=== PATIENT | male | born 1950 | race Caucasian/White ===

== ENCOUNTER 2017-01-21 10:47 | Observation (INO) | payer MEDICARE, OTHER ==
[~2017-01-21] VITALS: Ht 172.7 cm; Wt 81.5 kg
[2017-01-21 10:51] VITALS: BP 147/91; PULSE 64; RESP 18; TEMP 98.2; O2SAT 100
[2017-01-21 11:09] LABS: BLOOD, URINE SMALL (NEG); GLUCOSE,URINE NEG (NEG); KETONE, URINE NEG (NEG); NITRITE,URINE NEG (NEG); PH, URINE 6.5 (5.0-8.5)
[2017-01-21 11:11] LABS: METHOD OF COLLECTION CLEAN CATCH; URINE COLOR YELLOW (YELLW/STRAW)
--- NOTE | 2017-01-21 11:11 | PD ---
HPI Chief Complaint: Abdominal Pain Time Seen by Provider: 10:59 Travel History International Travel<30 days: No Contact w/Intl Traveler<30days: No Traveled to known affect area: No History of Present Illness HPI Patient 66-year-old male presents emergency Department with right lower quadrant abdominal pain for the past 2 hours. He is coming by his who states "he is not a complainer". Patient states the pain, radiates all throughout his right lower quadrant. Some mild nausea associated with symptoms but no vomiting. Patient states is moderate and sharp in nature. His only surgical history is a left inguinal hernia repair. He denies any diarrhea states was feeling well yesterday when he went to sleep. No fevers. Denies any dysuria. PFSH Past Medical History Hx Anticoagulant Therapy: Yes (asa 81) Cardiovascular Problems: Yes (htn cholesterol) Social History Tobacco Use: No Allergies-Medications (Allergen,Severity, Reaction): Coded Allergies: No Known Allergies (Unverified , 01/21/17) Reported Meds & Prescriptions Reported Meds & Active Scripts Active Reported [Occuvite] Aspirin EC (Aspirin) 81 Mg Tabdr 81 Mg PO DAILY Lisinopril 10 Mg Tab 10 Mg PO DAILY Atorvastatin (Atorvastatin Calcium) 40 Mg Tab 40 Mg PO HS Metoprolol Tartrate 50 Mg Tab 50 Mg PO BID Review of Systems Except as stated in HPI: all other systems reviewed are Neg Physical Exam Narrative GENERAL: Well-developed well-nourished, appears uncomfortable but nontoxic. SKIN: Focused skin assessment warm/dry. HEAD: Atraumatic. Normocephalic. EYES: Pupils equal and round. No scleral icterus. No injection or drainage. ENT: No nasal bleeding or discharge. Mucous membranes pink and moist. NECK: Trachea midline. No JVD. CARDIOVASCULAR: Regular rate and rhythm. No murmur appreciated. RESPIRATORY: No accessory muscle use. Clear to auscultation. Breath sounds equal bilaterally. GASTROINTESTINAL: Abdomen soft, moderately tender in the right lower quadrant, nondistended. Hepatic and splenic margins not palpable. No rebound no percussive tenderness. Genitourinary: No hernia, testes grossly normal. MUSCULOSKELETAL: No obvious deformities. No clubbing. No cyanosis. No edema. NEUROLOGICAL: Awake and alert. No obvious cranial nerve deficits. Motor grossly within normal limits. Normal speech. PSYCHIATRIC: Appropriate mood and affect; insight and judgment normal. Data Data Last Documented VS Vital Signs Date Time Temp Pulse Resp B/P Pulse Ox O2 Delivery O2 Flow Rate FiO2 01/21/17 14:14 75 16 185/86 96 Room Air 01/21/17 10:51 98.2 Orders Urinalysis - C+S If Indicated (01/21/17 10:49) Complete Blood Count With Diff (01/21/17 11:03) Comprehensive Metabolic Panel (01/21/17 11:03) Lipase (01/21/17 11:03) Ct Abd/Pel W Iv Contrast(Rout) (01/21/17 11:03) Iv Access Insert/Monitor (01/21/17 11:03) Ecg Monitoring (01/21/17 11:03) Oximetry (01/21/17 11:03) Sodium Chloride 0.9% Flush (Ns Flush) (01/21/17 11:15) Acetaminophen (Tylenol) (01/21/17 11:15) Morphine Inj (Morphine Inj) (01/21/17 11:30) Ondansetron Inj (Zofran Inj) (01/21/17 11:30) Iohexol 350 Inj (Omnipaque 350 Inj) (01/21/17 12:00) Abdomen, Kub Only (01/22/17 06:00) Tamsulosin (Flomax) (01/21/17 15:00) Ketorolac Inj (Toradol Inj) (01/21/17 18:00) Strain Urine PRN (01/21/17 14:48) Admit Order (Ed Use Only) (01/21/17 ) Consult Urology (01/21/17 ) Atorvastatin (Lipitor) (01/21/17 21:00) Lisinopril (Prinivil) (01/22/17 09:00) Metoprolol Tartrate (Lopressor) (01/21/17 21:00) Labs Laboratory Tests Test 01/21/17 01/21/17 11:00 11:08 Urine Collection Type CLEAN CATCH Urine Color YELLOW Urine Turbidity CLEAR Urine pH 6.5 Urine Specific [place] 1.022 Urine Protein 30 mg/dL Urine Glucose (UA) NEG mg/dL Urine Ketones NEG mg/dL Urine Occult Blood SMALL Urine Nitrite NEG Urine Bilirubin NEG Urine Leukocyte Esterase NEG Urine RBC 0-3 /hpf Urine WBC 3-5 /hpf Urine Amorphous Sediment FEW Microscopic Urinalysis Comment CULT NOT INDICATED White Blood Count 12.8 TH/MM3 Red Blood Count 4.95 MIL/MM3 Hemoglobin 15.3 GM/DL Hematocrit 45.8 % Mean Corpuscular Volume 92.5 FL Mean Corpuscular Hemoglobin 30.9 PG Mean Corpuscular Hemoglobin 33.4 % Concent Red Cell Distribution Width 12.5 % Platelet Count 220 TH/MM3 Mean Platelet Volume 9.0 FL Neutrophils (%) (Auto) 78.0 % Lymphocytes (%) (Auto) 14.6 % Monocytes (%) (Auto) 6.5 % Eosinophils (%) (Auto) 0.6 % Basophils (%) (Auto) 0.3 % Neutrophils # (Auto) 9.9 TH/MM3 Lymphocytes # (Auto) 1.9 TH/MM3 Monocytes # (Auto) 0.8 TH/MM3 Eosinophils # (Auto) 0.1 TH/MM3 Basophils # (Auto) 0.0 TH/MM3 CBC Comment DIFF FINAL Differential Comment Sodium Level 144 MEQ/L Potassium Level 4.0 MEQ/L Chloride Level 106 MEQ/L Carbon Dioxide Level 29.7 MEQ/L Anion Gap 8 MEQ/L Blood Urea Nitrogen 19 MG/DL Creatinine 1.30 MG/DL Estimat Glomerular Filtration 55 ML/MIN Rate Random Glucose 138 MG/DL Calcium Level 9.2 MG/DL Total Bilirubin 0.8 MG/DL Aspartate Amino Transf 24 U/L (AST/SGOT) Alanine Aminotransferase 39 U/L (ALT/SGPT) Alkaline Phosphatase 89 U/L Total Protein 7.6 GM/DL Albumin 3.9 GM/DL Lipase 187 U/L [facility] Medical Decision Making Medical Screen Exam Complete: Yes Emergency Medical Condition: Yes Differential Diagnosis Kidney stone, obstruction, appendicitis, gastritis, gastric enteritis, dehydration Narrative Course Patient 66-year-old male roomed in the emergency department, he appears comfortable but I think he is being fairly stoic currently. Initially he requested only Tylenol for pain. Was approached by nursing who states he looks even more uncomfortable. Morphine was ordered and this seems to be holding his pain had a comfortable level. CT examination was pursued and shows: Last 24 hours Impressions Abdomen/Pelvis CT 01/21/17 1103 Signed Impressions: Service Date/Time: January 11:48 - CONCLUSION: 1. 8 mm distal right ureteral stone with obstruction. There is perinephric fluid surrounding the right kidney suggesting calyceal rupture. 2. Tiny nonobstructing left renal calculi. 3. Enlarged prostate gland. Tono Ramirez Jr., MD Discuss results with the patient and recommended he have a urology consult preferably as an inpatient. His creatinine is 1.3, urine is noninfected. Patient was discussed with Dr. Carpenter who states that many times these particular types of stones or managed without intervention. He states he would happily see in consultation. The patient was discussed with Dr. Mirza for observation status and he is agreeable. Diagnosis Primary Impression: Hydronephrosis Qualified Code: N13.2 - Hydronephrosis with urinary obstruction due to ureteral calculus Additional Impression: Kidney stone Admitting Information Admitting Physician Requests: Observation Condition: Stable Rufus Hickman MD January 21, 2017 11:10
[2017-01-21 11:15] LABS: COMMENT (UR) CULT NOT INDICATED; COMMENT2 (UR) MUCOUS PRESENT; CULTURE IF INDICATED CULT NOT INDICATED; RBC, URINE 0-3 /hpf (0-3)
[2017-01-21] MEDS ORDERED: SODIUM CHLORIDE 0.9% FLUSH 10 ML FLUSH IV FLUSH PRN ×2 (11:15→15:15)
[2017-01-21] MEDS ORDERED: ACETAMINOPHEN 325 MG TAB PO ONE (11:15)
[2017-01-21] MEDS ORDERED: METO50TA PO (11:16)
[2017-01-21] MEDS ORDERED: OCCUVITE (11:16)
[2017-01-21] MEDS ORDERED: LISI10TA3 PO (11:16)
[2017-01-21] MEDS ORDERED: ATOR40TA16 PO (11:16)
[2017-01-21] MEDS ORDERED: ASPI81TA11 PO (11:16)
[2017-01-21 11:18] VITALS: O2SAT 99
[2017-01-21 11:22] LABS: AUTOMATED NEUTROPHIL # 9.9 TH/MM3 (1.8-7.7); BASOPHIL % 0.3 % (0.0-2.0); EOSINOPHIL # 0.1 TH/MM3 (0-0.4); EOSINOPHIL % 0.6 % (0.0-4.0); HEMATOCRIT 45.8 % (39.0-51.0); LYMPH % 14.6 % (9.0-44.0); LYMPHOCYTE # 1.9 TH/MM3 (1.0-4.8); MEAN CELL VOLUME 92.5 FL (80.0-100.0); MEAN CORPUSCULAR HEMOGLOBIN 30.9 PG (27.0-34.0); MEAN CORPUSCULAR HGB CONC 33.4 % (32.0-36.0); MONO % 6.5 % (0.0-8.0); PLATELET COUNT 220 TH/MM3 (150-450); RED BLOOD COUNT 4.95 MIL/MM3 (4.50-5.90); RED CELL DISTRIBUTION WIDTH 12.5 % (11.6-17.2); WHITE BLOOD COUNT 12.8 TH/MM3 (4.0-11.0)
[2017-01-21 11:23] LABS: HEMO FLAGS DIFF FINAL
[2017-01-21 11:28] LABS: CHLORIDE 106 MEQ/L (98-107); SODIUM (NA) 144 MEQ/L (136-145)
[2017-01-21] MEDS ORDERED: ONDANSETRON HCL 4 MG/2 ML VIAL IV PUSH ONE (11:30)
[2017-01-21] MEDS ORDERED: MORPHINE SULFATE 8 MG/ML INJ IV PUSH ONE (11:30)
[2017-01-21 11:32] LABS: ANION GAP 8 MEQ/L (5-15); BICARBONATE 29.7 MEQ/L (21.0-32.0)
[2017-01-21 11:33] LABS: BLOOD UREA NITROGEN 19 MG/DL (7-18)
[2017-01-21 11:35] LABS: ALT (GPT) 39 U/L (12-78); AST (GOT) 24 U/L (15-37); GLOMERULAR FILTRATION RATE 55 ML/MIN (>89)
[2017-01-21 11:37] LABS: TOTAL BILIRUBIN ADULT 0.8 MG/DL (0.2-1.0)
[2017-01-21 11:38] LABS: ALKALINE PHOSPHATASE 89 U/L (45-117)
[2017-01-21] MEDS ORDERED: IOHEXOL 350 MG/ML 10 ML VIAL (for RAD DIAG) IV ONE (12:00)
--- NOTE | 2017-01-21 13:34 | RADHPO ---
EXAM DATE/TIME: 01/21/2017 11:48 [facility] COMPARISON: No previous studies available for comparison. INDICATIONS : Right lower quadrant pain. IV CONTRAST: 85 cc Omnipaque 350 (iohexol) IV ORAL CONTRAST: No oral contrast ingested. RADIATION DOSE: 12.76 CTDIvol (mGy) MEDICAL HISTORY : Hypertension. SURGICAL HISTORY : None. ENCOUNTER: Initial ACUITY: 1 day PAIN SCALE: 7/10 LOCATION: Right lower quadrant TECHNIQUE: Volumetric scanning of the abdomen and pelvis was performed. Using automated exposure control and ad justment of the mA and/or kV according to patient size, radiation dose was kept as low as reasonably achievable to obtain optimal diagnostic quality images. FINDINGS: LOWER LUNGS: The visualized lower lungs are clear. LIVER: Homogeneous density without lesion. There is no dilation of the biliary tree. No calcified gallston es. SPLEEN: Normal size without lesion. PANCREAS: Within normal limits. KIDNEYS: An 8 mm distal ureteral stone is observed. This is essentially at the crossing of the iliac vessels. There is significant hydronephrosis and hydroureter. Perinephric fluid is seen surrounding the right kidney without an abscess. No other renal stones seen on the right. 2 tiny stones are seen on the lef t measuring 1-2 mm. These are nonobstructing. ADRENAL GLANDS: Within normal limits. VASCULAR: There is no aortic aneurysm. BOWEL/MESENTERY: The stomach, small bowel, and colon demonstrate no acute abnormality. There is no free intraperitone al air or fluid. ABDOMINAL WALL: Within normal limits. RETROPERITONEUM: There is no lymphadenopathy. BLADDER: No wall thickening or mass. REPRODUCTIVE: The prostate gland is enlarged. This measures 6.2 cm in mediolateral dimension. INGUINAL: There is no lymphadenopathy or hernia. MUSCULOSKELETAL: Within normal limits for patient age. CONCLUSION: 1. 8 mm distal right ureteral stone with obstruction. There is perinephric fluid surrounding the righ t kidney suggesting calyceal rupture. 2. Tiny nonobstructing left renal calculi. 3. Enlarged prostate gland. Tono Ramirez Jr., MD on January 21, 2017 at 13:28 Board Certified Radiologist. This report was verified electronically.
[2017-01-21 13:42] VITALS: BP 192/90; PULSE 74; RESP 16; O2SAT 96
[2017-01-21 14:14] VITALS: BP 185/86; PULSE 75; RESP 16; O2SAT 96
[2017-01-21] MEDS ORDERED: NALOXONE HCL 0.4 MG/ML AMP IV PRN (15:15)
[2017-01-21] MEDS ORDERED: ONDANSETRON HCL 4 MG/2 ML VIAL IVP PRN (15:15)
[2017-01-21] MEDS ORDERED: ACETAMINOPHEN 325 MG TAB PO PRN ×2 (15:15)
[2017-01-21] MEDS ORDERED: ZOLPIDEM TARTRATE 5 MG TAB PO PRN (15:15)
[2017-01-21] MEDS ORDERED: MORPHINE SULFATE 4 MG/ML INJ IV PRN (15:15)
[2017-01-21] MEDS ORDERED: SENNOSIDES 8.6 MG TAB PO PRN (15:15)
[2017-01-21] MEDS: TAMSULOSIN HCL 0.4 MG CAP PO SCH (15:18)
[2017-01-21] MEDS ORDERED: ENALAPRILAT 1.25 MG/ML VIAL IV PUSH PRN (15:30)
[2017-01-21] MEDS ORDERED: LEVOFLOXACIN 750 MG PREMIX INJ 150 ML IV SCH (15:30)
--- NOTE | 2017-01-21 15:30 | HHI.HP ---
[facility]Staff Ad[facility] Diagnosis Obstructing Uropathy Diagnoses: Chief Complaint: Abdominal pain Travel History International Travel<30 Days: No Contact w/Intl Traveler <30 Da: No Traveled to Known Affected Are: No History of Present Illness The patient is a 66-year-old male with past medical history of hypertension and hyperlipidemia who is presenting to the hospital with abdominal pain. He said he was feeling fine until this morning when he woke up with a pressure in his lower abdomen. He described the sensation is similar to feeling constipated. He says over the next 2 hours the pain turned sharp in nature and was located in the right lower quadrant. The pain did not seem to radiate anywhere. He rated the pain an 8 out of 10 in severity. He said it was constant in nature. He denied any nausea. He denies any difficulties with urinating or any blood in his urine. He says he has been having regular bowel movements. He currently rates his pain as a 4 out of 10 in severity. He denies any recent fevers or chills. The patient reports he had just arrived in [place] for vacation. Review of Systems Except as stated in HPI: all other systems reviewed are Neg Past Family Social History Past Medical History Hypertension Hyperlipidemia Past Surgical History Left inguinal hernia repair Bilateral foot surgery Allergies: Coded Allergies: No Known Allergies (Unverified , 01/21/17) Active Ordered Medications Current Medications Medications (Trade) Dose Ordered Sig/[place] Route Start Time Stop Time Status Last Admin (NS Flush) 2 ml UNSCH PRN IV FLUSH 01/21/17 11:15 (Flomax) 0.4 mg DAILY PO 01/21/17 15:00 01/21/17 15:18 (Toradol Inj) 30 mg Q6HR IV PUSH 01/21/17 18:00 01/26/17 17:59 (Lipitor) 40 mg HS PO 01/21/17 21:00 (Prinivil) 10 mg DAILY PO 01/22/17 09:00 Metoprolol Tartrate 50 mg 50 mg BID PO 01/21/17 21:00 (1/2 NS 1000 ml Inj) 1,000 ml @ 75 mls/hr [id number] IV 01/21/17 15:14 01/22/17 17:53 UNV (NS Flush) 2 ml UNSCH PRN IV FLUSH 01/21/17 15:15 UNV (NS Flush) 2 ml BID IV FLUSH 01/21/17 21:00 UNV (Tylenol) 650 mg Q4H PRN PO 01/21/17 15:15 UNV (Zofran Inj) 4 mg Q6H PRN IVP 01/21/17 15:15 UNV (Colace) 100 mg Q12H PO 01/21/17 15:15 UNV (Senokot) 17.2 mg Q12H PRN PO 01/21/17 15:15 UNV (Ambien) 5 mg HS PRN PO 01/21/17 15:15 UNV (Tylenol) 650 mg Q6H PRN PO 01/21/17 15:15 UNV (Roxicodone) 10 mg Q4H PRN PO 01/21/17 15:15 UNV (Morphine Inj) 4 mg Q4H PRN IV 01/21/17 15:15 UNV (Roxicodone) 5 mg Q4H PRN PO 01/21/17 15:15 UNV Naloxone HCl 0.4 mg 0.4 mg UNSCH PRN IV 01/21/17 15:15 UNV (Levaquin 750 Mg Premix Inj) 150 ml @ 100 mls/hr Q24H IV 01/21/17 15:30 UNV Family History CAD Social History The patient does not smoke. He has occasional alcohol use. Physical Exam Vital Signs Vital Signs Date Time Temp Pulse Resp B/P Pulse Ox O2 Delivery O2 Flow Rate FiO2 01/21/17 14:14 75 16 185/86 96 Room Air 01/21/17 13:42 74 16 192/90 96 Room Air 01/21/17 11:18 99 Room Air 01/21/17 10:51 98.2 64 18 147/91 100 Physical Exam GENERAL: This is a well-nourished, well-developed patient, in no apparent distress. SKIN: No rashes, ecchymoses or lesions. Cool and dry. HEAD: Atraumatic. Normocephalic. No temporal or scalp tenderness. EYES: Pupils equal round and reactive. Extraocular motions intact. No scleral icterus. No injection or drainage. ENT: Nose without bleeding, purulent drainage or septal hematoma. Throat without erythema, tonsillar hypertrophy or exudate. Uvula midline. Airway patent. NECK: Trachea midline. No JVD or lymphadenopathy. Supple, nontender, no meningeal signs. CARDIOVASCULAR: Regular rate and rhythm without murmurs, gallops, or rubs. RESPIRATORY: Clear to auscultation. Breath sounds equal bilaterally. No wheezes , rales, or rhonchi. GASTROINTESTINAL: Abdomen soft, slightly tender to palpation in the right lower quadrant. No guarding or rebound. MUSCULOSKELETAL: Bilateral extremities with trace edema. 2+ pedal pulses. NEUROLOGICAL: Awake and alert. Cranial nerves II through XII intact. Motor and sensory grossly within normal limits. Five out of 5 muscle strength in all muscle groups. Normal speech. PSYCH: Mood and affect appropriate. Laboratory Laboratory Tests Test 01/21/17 01/21/17 11:00 11:08 Urine Collection Type CLEAN CATCH Urine Color YELLOW Urine Turbidity CLEAR Urine pH 6.5 Urine Specific [place] 1.022 Urine Protein 30 Urine Glucose (UA) NEG Urine Ketones NEG Urine Occult Blood SMALL Urine Nitrite NEG Urine Bilirubin NEG Urine Leukocyte Esterase NEG Urine RBC 0-3 Urine WBC 3-5 Urine Amorphous Sediment FEW Microscopic Urinalysis Comment CULT NOT INDICATED White Blood Count 12.8 Red Blood Count 4.95 Hemoglobin 15.3 Hematocrit 45.8 Mean Corpuscular Volume 92.5 Mean Corpuscular Hemoglobin 30.9 Mean Corpuscular Hemoglobin 33.4 Concent Red Cell Distribution Width 12.5 Platelet Count 220 Mean Platelet Volume 9.0 Neutrophils (%) (Auto) 78.0 Lymphocytes (%) (Auto) 14.6 Monocytes (%) (Auto) 6.5 Eosinophils (%) (Auto) 0.6 Basophils (%) (Auto) 0.3 Neutrophils # (Auto) 9.9 Lymphocytes # (Auto) 1.9 Monocytes # (Auto) 0.8 Eosinophils # (Auto) 0.1 Basophils # (Auto) 0.0 CBC Comment DIFF FINAL Differential Comment Sodium Level 144 Potassium Level 4.0 Chloride Level 106 Carbon Dioxide Level 29.7 Anion Gap 8 Blood Urea Nitrogen 19 Creatinine 1.30 Estimat Glomerular Filtration 55 Rate Random Glucose 138 Calcium Level 9.2 Total Bilirubin 0.8 Aspartate Amino Transf 24 (AST/SGOT) Alanine Aminotransferase 39 (ALT/SGPT) Alkaline Phosphatase 89 Total Protein 7.6 Albumin 3.9 Lipase 187 Result Diagram: 01/21/17 1108 01/21/17 1108 Imaging Last Impressions Abdomen/Pelvis CT 01/21/17 1103 Signed Impressions: Service Date/Time: January 11:48 - CONCLUSION: 1. 8 mm distal right ureteral stone with obstruction. There is perinephric fluid surrounding the right kidney suggesting calyceal rupture. 2. Tiny nonobstructing left renal calculi. 3. Enlarged prostate gland. Tono Ramirez Jr., MD Assessment and Plan Assessment and Plan Obstructive uropathy The patient complained of right lower quadrant abdominal pain. CT scan of abdomen showed: 8 mm distal right ureteral stone with obstruction; There is perinephric fluid surrounding the right kidney suggesting calyceal rupture; Tiny nonobstructing left renal calculi. Urology was notified by the ED. UA unremarkable. Has leukocytosis of 12.8. - keep the pt NPO with IVFs for now. - pain control with a bowel regimen. - ceftriaxone 1 g daily. - follow up with urology. - follow BMP. HTN Exacerbated by pain. - continue Lopressor and lisinopril. - Vasotec as needed. - pain control. Hyperglycemia Likely a stress response. - follow BMP. PPx: SCDs. Code Status Full. Discussed Condition With Dr. Hickman, pt, pt's family. Kyle Mirza DO January 21, 2017 15:30
[2017-01-21] MEDS: cefTRIAXone INJ 1,000 MG in SODIUM CHLORIDE 0.9% INJ 100 ML IV SCH (15:49)
[2017-01-21] MEDS: SODIUM CHLOR 0.45% 1000 ML INJ 1,000 ML IV SCH (15:49)
[2017-01-21] MEDS: LISINOPRIL 10 MG TAB PO SCH (15:54)
[2017-01-21 16:11] VITALS: BP 179/94; PULSE 76; RESP 20; TEMP 96; O2SAT 95
[2017-01-21] MEDS: KETOROLAC TROMETHAMINE 30 MG/ML (IVP) VIAL IV PUSH SCH (18:22)
[2017-01-21 20:00] VITALS: BP 121/78; PULSE 84; RESP 18; TEMP 98.1; O2SAT 96
[2017-01-21] MEDS: METOPROLOL TARTRATE 50 MG TAB PO SCH (20:36)
[2017-01-21] MEDS: DOCUSATE SODIUM 100 MG CAP PO SCH (20:36)
[2017-01-21] MEDS: ATORVASTATIN 40 MG TAB PO SCH (20:36)
[2017-01-21] MEDS: SODIUM CHLORIDE 0.9% FLUSH 10 ML FLUSH IV FLUSH SCH (21:00)
[2017-01-22] VITALS (8 sets, daily range): BP systolic 111–136; BP diastolic 73–82; PULSE 56–75; RESP 16–19; TEMP 97.2–98.5; O2SAT 94–98
[2017-01-22] MEDS: KETOROLAC TROMETHAMINE 30 MG/ML (IVP) VIAL IV PUSH SCH ×4 (00:17→18:48)
[2017-01-22] MEDS: SODIUM CHLOR 0.45% 1000 ML INJ 1,000 ML IV SCH (04:33)
--- NOTE | 2017-01-22 06:23 | RADHPO ---
EXAM DATE/TIME: 01/22/2017 05:57 [facility] COMPARISON: No previous studies available for comparison. INDICATIONS : Evaluate renal calculi MEDICAL HISTORY : None. SURGICAL HISTORY : Hernia repair ENCOUNTER: Subsequent ACUITY: 2 days PAIN SCORE: 0/10 LOCATION: Right lower quadrant FINDINGS: Supine view of the abdomen was performed. The abdominal bowel gas pattern is normal. No abnormal ma sses, calcifications, or organomegaly is seen. Delayed nephrogram on the right with hydronephrosis a nd hydroureter. Distal right ureteral calculus appears unchanged. The osseous structures are unremark able. CONCLUSION: 1. Delayed nephrogram with hydronephrosis and hydroureter with unchanged position of distal ureteral calculus. Aristides Guevara MD on January 22, 2017 at 6:19 Board Certified Radiologist. This report was verified electronically.
[2017-01-22 06:28] LABS: AUTOMATED NEUTROPHIL # 7.5 TH/MM3 (1.8-7.7); BASOPHIL # 0.1 TH/MM3 (0-0.2); BASOPHIL % 0.8 % (0.0-2.0); EOSINOPHIL # 0.1 TH/MM3 (0-0.4); EOSINOPHIL % 1.2 % (0.0-4.0); HEMATOCRIT 44.1 % (39.0-51.0); HEMO FLAGS DIFF FINAL; LYMPH % 18.4 % (9.0-44.0); MEAN CELL VOLUME 93.3 FL (80.0-100.0); MEAN CORPUSCULAR HEMOGLOBIN 30.8 PG (27.0-34.0); MEAN CORPUSCULAR HGB CONC 33.1 % (32.0-36.0); MONO % 10.4 % (0.0-8.0); NEUT % 69.2 % (16.0-70.0); PLATELET COUNT 201 TH/MM3 (150-450); RED BLOOD COUNT 4.73 MIL/MM3 (4.50-5.90); RED CELL DISTRIBUTION WIDTH 12.8 % (11.6-17.2); WHITE BLOOD COUNT 10.8 TH/MM3 (4.0-11.0)
[2017-01-22 06:37] LABS: POTASSIUM 3.6 MEQ/L (3.5-5.1)
[2017-01-22 06:43] LABS: BICARBONATE 28.6 MEQ/L (21.0-32.0)
--- NOTE | 2017-01-22 08:29 | MB ---
cc: JERAMY PADILLA MD DATE OF CONSULTATION: 01/22/2017 REASON FOR CONSULTATION Distal right ureteral stone with hydronephrosis. HISTORY OF PRESENT ILLNESS The patient is a 66-year-old otherwise healthy male, who presented to the hospital with acute onset of right-sided lower abdominal pain radiating to his right flank, 8/10 in intensity. The patient stated he was feeling fine until yesterday morning when all of a sudden he woke up with severe stabbing pain in his right lower abdomen. He states it felt similar to being constipated in the past. Over the next two hours the pain turned sharp in nature and became more intense. He denies prior episodes. He came to the [facility] where he a CT stone protocol was done and was found to have a right 8 mm distal ureteral stone with mild hydronephrosis. He was subsequently admitted for pain control and urology was consulted. The patient states he just arrived in [place] for vacation from [place]. He denies any dysuria, hematuria, frequency, urgency, fevers or chills. He denies history of kidney stones or family history of prostate cancer. Currently his pain is much improved with 2-3/10; however, he has been taking morphine and Toradol. Denies history of urinary tract infections. His weight has been stable. Denies any new or unusual bone or back pain. REVIEW OF SYSTEMS See HPI. Otherwise a 12-point review of systems was performed and is negative. PAST MEDICAL HISTORY 1. Hypertension. 2. Hyperlipidemia. PAST SURGICAL HISTORY 1. Left inguinal hernia repair. 2. Bilateral foot surgery. 3. Circumcision. ALLERGIES No known drug allergies. FAMILY HISTORY Denies urolithiasis or genitourinary malignancies. SOCIAL HISTORY The patient denies illicit drugs or tobacco use. Does have occasional alcohol use. He is down on vacation with his from [place]. MEDICATIONS Home medications include: 1. Metoprolol 50 mg p.o. b.i.d. 2. Lipitor 40 mg p.o. q.h.s. 3. Prinivil 10 mg p.o. daily. PHYSICAL EXAMINATION VITAL SIGNS: Temperature 97.8, pulse 65, respiratory rate 16, blood pressure 111/73. Satting 96% on room air. GENERAL: In general he is alert and oriented x3, in no acute distress, pleasant and cooperative gentleman who appears his stated age. HEAD: Normocephalic, atraumatic. EYES: No scleral icterus. Extraocular muscles intact. SKIN: No ulcers or rashes. Mucous membranes are moist. LUNGS: Clear to auscultation bilaterally. No wheezes, rales or rhonchi. HEART: Regular rate and rhythm. ABDOMEN: Soft, nontender, nondistended. Positive bowel sounds. GENITOURINARY: Penis is circumcised. Testes are descended bilaterally, normal size and consistency without mass. RECTAL: Not indicated at this time. EXTREMITIES: No clubbing, cyanosis or edema. Nontender. PSYCHIATRIC: Normal affect. NEUROLOGIC: Strength 5/5 in all four extremities. Cranial nerves II through XII intact. LABORATORY White count 10.8, hemoglobin 14.6, hematocrit 44.1, platelet count 201. Sodium 142, potassium 3.6, chloride 106, bicarb 28.6, BUN 24, creatinine 1.70, glucose 109, calcium 8.4. Urine shows specific gravity of 1.032, small blood, negative nitrites, negative leukocyte esterase. IMAGING CT of the abdomen and pelvis with contrast was reviewed. Agree with the radiologist's report. The patient has a distal right ureteral stone with mild hydronephrosis. ASSESSMENT The patient is a 66-year-old male admitted with right lower abdominal pain and found to have an obstructing distal right ureteral stone. PLAN Keep the patient n.p.o. He is scheduled to the OR today for cystoscopy, retrograde pyelogram and stent placement. I discussed the risks, benefits and alternatives of the procedure with him including the risks of pain, bleeding, infection, need for additional stone treatment in the future, as well as stone removal. All questions were answered. He understood these risks. Thank you for this consult. Jeramy Padilla MD EMPavel/LUCIEN /8:03 AM 8:14 AM
[2017-01-22] MEDS ORDERED: LISINOPRIL 10 MG TAB PO SCH (09:00)
[2017-01-22] MEDS ORDERED: PNEUMOCOCCAL POLYVALENT INJ 25 MCG/0.5 ML SYR IM ONE (10:00)
[2017-01-22] MEDS: LISINOPRIL 10 MG TAB PO SCH (10:26)
[2017-01-22] MEDS: DOCUSATE SODIUM 100 MG CAP PO SCH ×2 (10:27→20:53)
[2017-01-22] MEDS: TAMSULOSIN HCL 0.4 MG CAP PO SCH (10:27)
[2017-01-22] MEDS: METOPROLOL TARTRATE 50 MG TAB PO SCH ×2 (10:27→20:53)
[2017-01-22] MEDS: SODIUM CHLORIDE 0.9% FLUSH 10 ML FLUSH IV FLUSH SCH ×2 (10:28→20:53)
[2017-01-22] MEDS ORDERED: PROPOFOL 200 MG/20 ML AMP IV ONE (11:04)
[2017-01-22] MEDS ORDERED: FAMOTIDINE 20 MG/2 ML VIAL ONE (12:30)
[2017-01-22] MEDS ORDERED: MIDAZOLAM HCL 2 MG/2 ML VIAL ONE (12:30)
[2017-01-22] MEDS ORDERED: LACTATED RINGER'S 1000 ML INJ 1,000 ML ONE (12:30)
[2017-01-22] MEDS ORDERED: SODIUM CHLORIDE 0.9% INJ 100 ML ONE (12:31)
[2017-01-22] MEDS ORDERED: IOHEXOL 350 MG/ML 50 ML BTL (for RAD DIAG) OTHER ONE (12:59)
--- NOTE | 2017-01-22 15:13 | RADHPO ---
EXAM DATE/TIME: 01/22/2017 13:10 [facility] COMPARISON: No previous studies available for comparison. INDICATIONS : Cystography and Retrograde pyleogram with stent placement. .8 minutes 1 CONTRAST: Instilled by Ordering Physician MEDICAL HISTORY : None. SURGICAL HISTORY : None. ENCOUNTER: Initial ACUITY: 1 day PAIN SCORE: Non-responsive. LOCATION: Kidney FINDINGS: There is contrast present in a dilated upper tract. A catheter reaches the upper pole collecting syst em. A central filling defect may be stone, mass or debris. CONCLUSION: Please refer to Dr. Carpenter' procedure report for additional details Zoran Gant MD on January 22, 2017 at 15:09 Board Certified Radiologist. This report was verified electronically.
[2017-01-22] MEDS: cefTRIAXone INJ 1,000 MG in SODIUM CHLORIDE 0.9% INJ 100 ML IV SCH (15:31)
--- NOTE | 2017-01-22 15:48 | HHI.PR ---
Subjective Remarks Patient is status post stent placement. Denies chest pain or shortness of breath Denies fevers or chills Creatinine higher today from 1.3 to 1.7 Objective Vitals Vital Signs Date Time Temp Pulse Resp B/P Pulse Ox O2 Delivery O2 Flow Rate FiO2 01/22/17 14:15 57 01/22/17 14:15 97.9 57 14 136/78 97 Room Air 01/22/17 14:00 54 14 138/82 98 Nasal Cannula 2 01/22/17 13:45 64 14 100/66 100 Nasal Cannula 2 01/22/17 13:30 56 14 94/51 98 Nasal Cannula 2 01/22/17 13:21 56 01/22/17 13:21 97.8 56 14 78/45 97 Nasal Cannula 2 01/22/17 12:11 97.6 64 16 136/79 97 01/22/17 12:00 98.0 66 18 115/81 95 01/22/17 11:19 16 01/22/17 08:00 97.2 73 19 117/78 94 01/22/17 00:00 97.8 65 16 111/73 96 01/21/17 20:00 98.1 84 18 121/78 96 01/21/17 16:11 96.0 76 20 179/94 95 I/O 01/21/17 01/21/17 01/21/17 01/22/17 01/22/17 01/22/17 07:00 15:00 23:00 07:00 15:00 23:00 Intake Total 651 ml 594 ml 1300 ml Output Total 400 ml 400 ml Balance 251 ml 594 ml 900 ml Intake Oral 0 ml IV Total 651 ml 594 ml 500 ml Other 800 ml Output Urine Total 400 ml 400 ml # Voids 1 Result Diagram: 01/22/17 0608 01/22/17 0608 Imaging Last Impressions Abdomen X-Ray 01/22/17 0600 Signed Impressions: Service Date/Time: Sunday, January 22, 2017 05:57 - CONCLUSION: 1. Delayed nephrogram with hydronephrosis and hydroureter with unchanged position of distal ureteral calculus. Aristides Guevara MD Abdomen/Pelvis CT 01/21/17 1103 Signed Impressions: Service Date/Time: January 11:48 - CONCLUSION: 1. 8 mm distal right ureteral stone with obstruction. There is perinephric fluid surrounding the right kidney suggesting calyceal rupture. 2. Tiny nonobstructing left renal calculi. 3. Enlarged prostate gland. Tono Ramirez Jr., MD Objective Remarks GENERAL: This is a well-nourished, well-developed patient, in no apparent distress. SKIN: No rashes, ecchymoses or lesions. Cool and dry. HEAD: Atraumatic. Normocephalic. No temporal or scalp tenderness. EYES: Pupils equal round and reactive. Extraocular motions intact. No scleral icterus. No injection or drainage. ENT: Nose without bleeding, purulent drainage or septal hematoma. Throat without erythema, tonsillar hypertrophy or exudate. Uvula midline. Airway patent. NECK: Trachea midline. No JVD or lymphadenopathy. Supple, nontender, no meningeal signs. CARDIOVASCULAR: Regular rate and rhythm without murmurs, gallops, or rubs. RESPIRATORY: Clear to auscultation. Breath sounds equal bilaterally. No wheezes , rales, or rhonchi. GASTROINTESTINAL: Abdomen soft, slightly tender to palpation in the right lower quadrant. No guarding or rebound. MUSCULOSKELETAL: Bilateral extremities with trace edema. 2+ pedal pulses. NEUROLOGICAL: Awake and alert. Cranial nerves II through XII intact. Motor and sensory grossly within normal limits. Five out of 5 muscle strength in all muscle groups. Normal speech. PSYCH: Mood and affect appropriate. Procedures Status post cystoscopy, right retrograde pyelogram, right stent placement. Medications and IVs Current Medications Medications (Trade) Dose Ordered Sig/Dacia Route Start Time Stop Time Status Last Admin (NS Flush) 2 ml UNSCH PRN IV FLUSH 01/21/17 11:15 (Flomax) 0.4 mg DAILY PO 01/21/17 15:00 01/22/17 10:27 (Toradol Inj) 30 mg Q6HR IV PUSH 01/21/17 18:00 01/26/17 17:59 01/22/17 05:28 (Lipitor) 40 mg HS PO 01/21/17 21:00 01/21/17 20:36 Metoprolol Tartrate 50 mg 50 mg BID PO 01/21/17 21:00 01/22/17 10:27 (1/2 NS 1000 ml Inj) 1,000 ml @ 75 mls/hr [id number] IV 01/21/17 15:14 01/22/17 17:53 01/22/17 04:33 (NS Flush) 2 ml UNSCH PRN IV FLUSH 01/21/17 15:15 (NS Flush) 2 ml BID IV FLUSH 01/21/17 21:00 01/22/17 10:28 (Tylenol) 650 mg Q4H PRN PO 01/21/17 15:15 (Zofran Inj) 4 mg Q6H PRN IVP 01/21/17 15:15 (Colace) 100 mg Q12HR PO 01/21/17 21:00 01/22/17 10:27 (Senokot) 17.2 mg Q12H PRN PO 01/21/17 15:15 (Ambien) 5 mg HS PRN PO 01/21/17 15:15 (Tylenol) 650 mg Q6H PRN PO 01/21/17 15:15 (Roxicodone) 10 mg Q4H PRN PO 01/21/17 15:15 (Morphine Inj) 4 mg Q4H PRN IV 01/21/17 15:15 (Roxicodone) 5 mg Q4H PRN PO 01/21/17 15:15 01/22/17 10:27 (Narcan Inj) 0.4 mg UNSCH PRN IV 01/21/17 15:15 Enalaprilat 1.25 mg 1.25 mg Q6H PRN IV PUSH 01/21/17 15:30 (Rocephin Inj/NS Inj) 100 ml @ 200 mls/hr Q24H IV 01/21/17 16:00 01/22/17 15:31 (Prinivil) 10 mg DAILY PO 01/21/17 15:45 01/22/17 10:26 Urinary Catheter: No Vascular Central Line Catheter: No A/P Problem List: (1) Obstructive uropathy ICD Code: N13.9 Status: Acute Plan: CT abdomen and pelvis showed a 1.1 mm distal right ureteral stone with obstruction. Perinephric fluid surrounding the right kidney suggesting calyceal rupture. Tiny obstructing left renal calculi and enlarged prostate gland. Patient was placed in observation to medical floor and urology consulted. Patient is status post cystoscopy with right stent placement. Pain control with oxycodone and IV morphine. (2) Kidney stone ICD Code: N20.0 Status: Acute Plan: Post right stent placement as above. Follow-up urology recommendations. (3) ELLY (acute kidney injury) ICD Code: N17.9 Status: Acute Plan: He had been 1.3 on presentation to the hospital, today 1.7. Likely secondary to obstructive uropathy. Continue IV fluids, continue Flomax. Continue to monitor BUN/creatinine creatinine, strict I's and O's. (4) Hydronephrosis ICD Code: N13.30 Status: Acute Plan: No nephrosis secondary to kidney stone. Patient is status post stent placement as above. (5) HTN (hypertension) ICD Code: I10 Status: Acute Plan: BP seems to be stable. Patient on lisinopril which I will hold due to rising creatinine. I will resume once creatinine trends down. Continue enalaprilat IV for systolic blood pressure more than 160. (6) Right lower quadrant abdominal pain ICD Code: R10.31 Status: Acute Plan: Referred pain due to renal colic, secondary to kidney stone and hydronephrosis that is post right stent placement. Right lower quadrant abdominal pain has now resolved. Continue pain control with oral oxycodone and IV morphine. Assessment and Plan DVT prophylaxis: SCDs Discharge Planning Possible discharge in a.m. pending improvement in creatinine. Problem Qualifiers (1) Hydronephrosis: Qualified Code: N13.2 - Hydronephrosis with urinary obstruction due to ureteral calculus (2) HTN (hypertension): Qualified Code: I10 - Essential hypertension Chevy Martin MD January 22, 2017 15:48
[2017-01-22] MEDS: ATORVASTATIN 40 MG TAB PO SCH (20:53)
--- NOTE | 2017-01-22 21:19 | MP ---
cc: HIPOLITO PADILLA MD DATE OF SURGERY: 01/22/2017. PREOPERATIVE DIAGNOSIS: 1. Right distal ureteral stone. 2. Right hydronephrosis. POSTOPERATIVE DIAGNOSIS: 1. Right distal ureteral stone. 2. Right hydronephrosis. OPERATIVE PROCEDURE PERFORMED: 1. Cystourethroscopy 2. Right retrograde pyelogram. 3. Insertion of right ureteral stent SURGEON: Hipolito Padilla MD. ANESTHESIA: General. COMPLICATIONS None. PREOPERATIVE ANTIBIOTICS: Rocephin 1 gram IV. DRAINS: A 6 x 24 double-J right ureteral stent BLOOD LOSS: Zero. DISPOSITION: To recovery. INDICATIONS FOR THE PROCEDURE: This patient is a 66-year-old male who presented to the emergency room with complaints of right flank pain and nausea. The patient had a CT of the abdomen pelvis without contrast which showed a distal 8 mm right ureteral stone with moderate hydronephrosis. He was also found to have elevated creatinine 1.7. He is down on vacation visiting from [place]. Treatment options were discussed including trial passage versus a stent placement and he elected to proceed with stent placement. After risks, benefits and alternatives were explained, the patient agreed to proceed and informed consent was obtained. DESCRIPTION OF THE PROCEDURE IN DETAIL: The patient was identified and brought back to the cystoscopy suite where he was laid supine on the cystoscopy table. A proper time-out was performed under the direction of anesthesiology. The patient was able to be induced under general aesthetic. Preop antibiotics in the form of Rocephin 1 gram IV was given at the start of the procedure. The patient was then placed in the dorsal lithotomy position and prepped and draped in the usual sterile fashion in the normal sterile surgical fashion. A rigid cyst cystoscope was then carefully passed into his bladder per urethra without any difficulties. The bladder was carefully examined. There was no evidence of any bladder tumor, stones, diverticula or trabeculations. He did have an enlarged median lobe. Both ureteral orifices were identified and appeared in normal anatomic location. A 6-Bahraini open-ended ureteral catheter was then passed gently into his right ureteral orifice. A right retrograde pyelogram was performed which showed the filling defect in his right distal ureter consistent with the stone on CT. Proximal to the stone, he had a significant dilated ureter and moderate hydronephrosis. Through the indwelling ureteral catheter, I was able to pass the wire up into his right kidney and the ureteral catheter was then removed. A 6 x 24 double-J stent was then back-loaded over the wire up into the right kidney. The proximal portion of the stent appeared to be in the upper pole with a good curl in the bladder. The bladder was then drained. This completed the procedure. The patient was extubated and sent to recovery in stable condition. From the urology standpoint, it is okay for him to be discharged home and he can then follow up with the urologist in [place] for definitive treatment of the stone. Recommend that he be sent jose alberto with Percocet and Flomax 0.4 milligrams daily. Hipolito Padilla MD EMPavel/VINNIE /1:45 PM /9:04 PM
[2017-01-23 00:28] VITALS: BP 112/67; PULSE 65; RESP 18; TEMP 97.5; O2SAT 96
[2017-01-23] MEDS: KETOROLAC TROMETHAMINE 30 MG/ML (IVP) VIAL IV PUSH SCH ×3 (00:52→12:59)
[2017-01-23 08:00] VITALS: BP 142/80; PULSE 71; RESP 18; TEMP 97.8; O2SAT 100
[2017-01-23] MEDS: DOCUSATE SODIUM 100 MG CAP PO SCH (09:00)
[2017-01-23] MEDS: METOPROLOL TARTRATE 50 MG TAB PO SCH (09:17)
[2017-01-23] MEDS: TAMSULOSIN HCL 0.4 MG CAP PO SCH (09:17)
[2017-01-23] MEDS: SODIUM CHLORIDE 0.9% FLUSH 10 ML FLUSH IV FLUSH SCH (09:17)
[2017-01-23] MEDS: LISINOPRIL 10 MG TAB PO SCH (09:17)
[2017-01-23 10:19] LABS: BICARBONATE 29.4 MEQ/L (21.0-32.0)
[2017-01-23 10:22] LABS: POTASSIUM 3.8 MEQ/L (3.5-5.1)
--- NOTE | 2017-01-23 10:32 | EKG ---
Date Performed: 01/22/2017 Time Performed: 12:26:08 PTAGE: 66 years EKG: Sinus rhythm . Inferior T wave changes are nonspecific Borderline ECG NO PREVIOUS TRACING DOCTOR: Vy Infante Interpretating Date/Time 01/23/2017 10:29:51
[2017-01-23 12:00] VITALS: BP 131/81; PULSE 67; RESP 18; TEMP 97.7; O2SAT 95
[2017-01-23] MEDS ORDERED: TAMS5CAP PO (14:03)
--- NOTE | 2017-01-23 14:04 | HHI.DCPOC ---
Discharge Care Plan Diagnosis: (1) Kidney stone (2) Hydronephrosis (3) Obstructive uropathy (4) HTN (hypertension) (5) ELLY (acute kidney injury) (6) Right lower quadrant abdominal pain (7) BPH (benign prostatic hyperplasia) Goals to Promote Your Health * To prevent worsening of your condition and complications * To maintain your health at the optimal level Directions to Meet Your Goals Take your medications as prescribed Follow your dietary instruction Follow activity as directed Keep your appointments as scheduled Take your immunizations and boosters as scheduled If your symptoms worsen call your PCP, if no PCP go to Urgent Care Center or Emergency Room Smoking is Dangerous to Your Health. Avoid second hand smoke Call the 24-hour hour crisis hotline for domestic abuse at Chevy Martin MD January 23, 2017 14:04
--- NOTE | 2017-01-23 14:11 | HHI.DS ---
Discharge Summary Admission Date January 21, 2017 at 14:54 Discharge Date: January 23, 2017 Admitting Diagnosis Obstructing Uropathy (1) Obstructive uropathy ICD Code: N13.9 Diagnosis: Principal (2) Kidney stone ICD Code: N20.0 Diagnosis: Principal (3) ELLY (acute kidney injury) ICD Code: N17.9 Diagnosis: Principal (4) Hydronephrosis ICD Code: N13.30 Diagnosis: Principal (5) HTN (hypertension) ICD Code: I10 Diagnosis: Principal (6) Right lower quadrant abdominal pain ICD Code: R10.31 Diagnosis: Principal Procedures Status post cystoscopy, right retrograde pyelogram, right stent placement. Brief History - From Admission The patient is a 66-year-old male with past medical history of hypertension and hyperlipidemia who is presenting to the hospital with abdominal pain. He said he was feeling fine until this morning when he woke up with a pressure in his lower abdomen. He described the sensation is similar to feeling constipated. He says over the next 2 hours the pain turned sharp in nature and was located in the right lower quadrant. The pain did not seem to radiate anywhere. He rated the pain an 8 out of 10 in severity. He said it was constant in nature. He denied any nausea. He denies any difficulties with urinating or any blood in his urine. He says he has been having regular bowel movements. He currently rates his pain as a 4 out of 10 in severity. He denies any recent fevers or chills. The patient reports he had just arrived in [place] for vacation. CBC/BMP: 01/22/17 0608 01/23/17 0945 Significant Findings Laboratory Tests Test 01/21/17 01/21/17 01/22/17 01/23/17 11:00 11:08 06:08 09:45 Urine Protein 30 mg/dL (NEG-TRACE) Urine Occult Blood SMALL (NEG) White Blood Count 12.8 TH/MM3 (4.0-11.0) Neutrophils (%) (Auto) 78.0 % (16.0-70.0) Neutrophils # (Auto) 9.9 TH/MM3 (1.8-7.7) Blood Urea Nitrogen 19 MG/DL (7-18) 24 MG/DL (7-18) Estimat Glomerular Filtration 55 ML/MIN (>89) 41 ML/MIN (>89) 61 ML/MIN (>89) Rate Random Glucose 138 MG/DL 109 MG/DL 108 MG/DL (74-106) (74-106) (74-106) Monocytes (%) (Auto) 10.4 % (0.0-8.0) Monocytes # (Auto) 1.1 TH/MM3 (0-0.9) Creatinine 1.70 MG/DL (0.60-1.30) Calcium Level 8.4 MG/DL (8.5-10.1) Imaging Last Impressions Abdomen X-Ray 01/22/17 0600 Signed Impressions: Service Date/Time: Sunday, January 22, 2017 05:57 - CONCLUSION: 1. Delayed nephrogram with hydronephrosis and hydroureter with unchanged position of distal ureteral calculus. Aristides Guevara MD Retrograde Pyelogram 01/22/17 0000 Signed Impressions: Service Date/Time: Sunday, January 22, 2017 13:10 - CONCLUSION: Please refer to Dr. Carpenter' procedure report for additional details Zoran Gant MD Abdomen/Pelvis CT 01/21/17 1103 Signed Impressions: Service Date/Time: January 11:48 - CONCLUSION: 1. 8 mm distal right ureteral stone with obstruction. There is perinephric fluid surrounding the right kidney suggesting calyceal rupture. 2. Tiny nonobstructing left renal calculi. 3. Enlarged prostate gland. Tono Ramirez Jr., MD PE at Discharge GENERAL: This is a well-nourished, well-developed patient, in no apparent distress. SKIN: No rashes, ecchymoses or lesions. Cool and dry. HEAD: Atraumatic. Normocephalic. No temporal or scalp tenderness. EYES: Pupils equal round and reactive. Extraocular motions intact. No scleral icterus. No injection or drainage. ENT: Nose without bleeding, purulent drainage or septal hematoma. Throat without erythema, tonsillar hypertrophy or exudate. Uvula midline. Airway patent. NECK: Trachea midline. No JVD or lymphadenopathy. Supple, nontender, no meningeal signs. CARDIOVASCULAR: Regular rate and rhythm without murmurs, gallops, or rubs. RESPIRATORY: Clear to auscultation. Breath sounds equal bilaterally. No wheezes , rales, or rhonchi. GASTROINTESTINAL: Abdomen soft, slightly tender to palpation in the right lower quadrant. No guarding or rebound. MUSCULOSKELETAL: Bilateral extremities with trace edema. 2+ pedal pulses. NEUROLOGICAL: Awake and alert. Cranial nerves II through XII intact. Motor and sensory grossly within normal limits. Five out of 5 muscle strength in all muscle groups. Normal speech. PSYCH: Mood and affect appropriate. Pt update on day of discharge Patient has no complaints. Denies cp/sob, denies fevers or chills. Creatinine has trended down to baseline of 1.2. Hospital Course (1) Obstructive uropathy CT abdomen and pelvis showed a 1.1 mm distal right ureteral stone with obstruction. Perinephric fluid surrounding the right kidney suggesting calyceal rupture. Tiny obstructing left renal calculi and enlarged prostate gland. Patient was placed in observation to medical floor and urology consulted. Patient underwent cystoscopy with right stent placement. Pain control provided with oxycodone and IV morphine. (2) Kidney stone Post right stent placement as above. Follow-up urology recommendations. (3) ELLY (acute kidney injury) Creatinine 1.3 on presentation to the hospital went up to 1.7. Likely secondary to obstructive uropathy. Creatinine improved after patient received stents and IV fluids. BUN/ creatinine as well as urine output were monitored throughout hospitalization. (4) Hydronephrosis Hydronephrosis secondary to kidney stone. Patient is status post stent placement as above. (5) HTN (hypertension) JAKE inhibitor held due to rising creatinine. Creatinine back to baseline 1.2. Lisinopril can be resumed. BP remained stable. Enalaprilat IV was prescribed in case this was needed. (6) Right lower quadrant abdominal pain Referred pain due to renal colic, secondary to kidney stone and hydronephrosis that is post right stent placement. Right lower quadrant abdominal pain has now resolved. Continue pain control with oral oxycodone and IV morphine. DVT prophylaxis: SCDs Pt Condition on Discharge: Stable Discharge Disposition: Discharge Home Discharge Time: <= 30 minutes Discharge Instructions DIET: Follow Instructions for: As Tolerated, No Restrictions Activities you can perform: Regular-No Restrictions Activities to Avoid: Strenuous Activity Follow up Referrals: PCP Follow-up Urology - 1 Week with Jeramy Carpenter MD New Medications: Tamsulosin (Flomax) 0.4 Mg Cap 0.4 MG PO DAILY bph #31 CAP Continued Medications: Aspirin DR (Aspirin EC) 81 Mg Tabdr 81 MG PO DAILY Ref 0 TAB Atorvastatin (Atorvastatin) 40 Mg Tab 40 MG PO HS Cholesterol Management #30 Ref 0 TAB Lisinopril (Lisinopril) 10 Mg Tab 10 MG PO DAILY #30 Ref 0 TAB Metoprolol Tartrate (Metoprolol Tartrate) 50 Mg Tab 50 MG PO BID #60 Ref 0 TAB ([Occuvite]) Chevy Martin MD January 23, 2017 14:11
--- NOTE | 2017-01-23 22:05 | EKG ---
Date Performed: 01/22/2017 Time Performed: 08:56:28 PTAGE: 66 years EKG: Sinus rhythm . Inferior T wave changes are nonspecific Borderline ECG NO PREVIOUS TRACING DOCTOR: Vy Infante Interpretating Date/Time 01/23/2017 22:01:18
== END 2017-01-23 15:05 | disposition home or self-care (01) ==
LOC: PHED 10:47 → PHEDA 14:54 → PH3A 16:04
PROVIDERS: ADMIT Hospitalist; ATTEND Hospitalist
DX: N13.1 Hydronephrosis with ureteral stricture, not elsewhere classified (principal); I10 Essential (primary) hypertension; E78.5 Hyperlipidemia, unspecified; E78.00 Pure hypercholesterolemia, unspecified; N17.9 Acute kidney failure, unspecified; R73.9 Hyperglycemia, unspecified; N40.0 Benign prostatic hyperplasia without lower urinary tract symptoms; Z79.82 Long term (current) use of aspirin; Z23 Encounter for immunization
CPT/HCPCS: 52332; 74000; 74177; 74420; 76000; 80048; 80053; 81001; 83690; 85025; 87040; 90732; 93005; 96374; 96375; 99285; C2617; G0009; G0378; J0696; J1885; J2250; J2270; J2405; J3010; J7120; Q9967; 90471